=== PATIENT | male | born 1955 | race Caucasian/White ===

== ENCOUNTER 2021-02-18 07:04 | Emergency (ER) | payer OTHER ==
[~2021-02-18] VITALS: Ht 175.3 cm; Wt 81.8 kg
[2021-02-18 07:04] VITALS: BP 176/77
[2021-02-18] MEDS ORDERED: ORPH100T PO (07:19)
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
== END 2021-02-18 07:36 | disposition home or self-care (01) ==
LOC: ER 07:04
DX: Z04.1 Encounter for examination and observation following transport accident (principal); E11.9 Type 2 diabetes mellitus without complications; Z95.5 Presence of coronary angioplasty implant and graft
CPT/HCPCS: 99283